=== PATIENT | male | born 1995 | race Caucasian/White ===

== ENCOUNTER 2023-04-02 13:31 | Emergency (ER) | payer SELFPAY ==
[2023-04-02 13:44] VITALS: BP 135/81; PULSE 70; RESP 16; TEMP 37.4; O2SAT 99
--- NOTE | 2023-04-02 13:59 | ED.URI ---
HPI - URI/Sore Throat General Chief Complaint: Upper Respiratory Infection Stated Complaint: irritation in both eyes; sore throat Time Seen by Provider: 04/02/23 14:18 Source: patient and RN notes reviewed Mode of arrival: ambulatory Limitations: no limitations History of Present Illness HPI Narrative: 27-year-old male presents with concern for bilateral eye redness, discharge. He also reports sore throat, runny nose and stuffy nose. Reports his eyes were crusted shut in the morning the last several days. He reports there itchy. He reports some started after he was cleaning the house. MD elicited complaint: sore throat Related Data Allergies Allergy/AdvReac Type Severity Reaction Status Date / Time No Known Allergies Allergy Mild Verified 04/02/23 13:41 Review of Systems Review of Systems: CONSTITUTIONAL: Denies malaise, chills, sweats, or fever. EYES: Denies visual changes. Reports bilateral irritation, redness, discharge. ENT: Reports rhinorrhea, congestion, sore throat. Denies sinus pain, otalgia CARDIOVASCULAR: Denies chest pain, palpitations, or edema. RESPIRATORY: Reports cough. Denies dyspnea. GASTROINTESTINAL: Denies abdominal pain, nausea, vomiting, diarrhea SKIN: Denies rash or itching. MUSCULOSKELETAL: Denies myalgia. NEUROLOGIC: Denies headache. All systems reviewed & are unremarkable except as noted in HPI and below PMFSH Comments At time of signature, agree with nursing past medical, surgical, social and family history. There is no relevant family history pertinent to the presenting complaint Exam Narrative: GENERAL: Well-appearing, well-nourished, and in no acute distress. HEAD: Normocephalic EYES: PERRLA, conjunctivae and sclera injected bilaterally, worse on the left ENT: Nares clear, turbinates edematous and erythematous, clear discharge. Mucous membranes moist. TM pearly messer with dull light reflex bilaterally; no tragal tenderness. Oropharynx not erythematous without lesions. Tonsils not enlarged and without exudate, no drooling, no hoarseness, no trismus, uvula midline. NECK: Supple. No lymphadenopathy CHEST: Clear to auscultation, breath sounds equal. No wheezing, rhonchi, rales, or stridor. No respiratory distress, speaks in full sentences. HEART: Regular rate and rhythm. No murmur heard. SKIN: Warm, dry, no rash. NEURO: Alert and oriented x3. PSYCH: Normal mood and affect Course Course Emergency Course: Patient is aware of diagnosis, understands and agrees to treatment plan. Anticipatory guidance given. Patient agrees to follow-up as directed and is aware of reasons to seek care at the emergency department. Portions of this record may have been created with voice recognition software Level of Care: Express Care Visit Vital Signs Vital signs: Vital Signs Temperature 99.3 F 04/02/23 13:44 Pulse Rate 70 04/02/23 13:44 Respiratory Rate 16 04/02/23 13:44 Blood Pressure 135/81 04/02/23 13:44 Pulse Oximetry 99 04/02/23 13:44 Oxygen Delivery Room Air 04/02/23 13:44 Temperature 99.3 F 04/02/23 13:44 Pulse Rate 70 04/02/23 13:44 Respiratory Rate 16 04/02/23 13:44 Blood Pressure 135/81 04/02/23 13:44 Pulse Oximetry 99 04/02/23 13:44 Oxygen Delivery Room Air 04/02/23 13:44 Reviewed. MDM - URI/Sore Throat MDM Narrative Medical decision making narrative: Differential diagnosis considered: [place] virus, strep pharyngitis, allergic rhinitis, upper respiratory tract infection, sinusitis, rhinosinusitis, nasopharyngitis. viral pharyngitis, otitis media, otitis externa, pneumonia, bronchitis, viral cough syndrome, viral syndrome, and influenza. Exam findings show no acute concerns or changes; patient is non-toxic appearing and is in no distress. Patient is appropriate for outpatient treatment and follow-up. Consideration of the following conditions may be warranted for the presenting problem, they are not final diagnoses: Bacterial conjunctivitis
[2023-04-02 14:26] VITALS: BP 135/81; PULSE 70; RESP 16; TEMP 37.4; O2SAT 99
== END 2023-04-02 14:28 | disposition home or self-care (01) ==
PROVIDERS: Emergency Provider Nurse Practitioner; PCP Pediatrics
DX: H10.9 Unspecified conjunctivitis (principal)
CPT/HCPCS: 87081; 87880; 99213; G0463